=== PATIENT | female | born 1995 | race Caucasian/White ===

== ENCOUNTER 2018-02-03 16:11 | Observation (INO) ==
[2018-02-03] MEDS ORDERED: Sod Chloride 0.9% Inj 1,000 ML IV.SIG SCH (16:30)
[2018-02-03] MEDS ORDERED: Sod Chloride 0.9% Inj 800 ML IV.SIG SCH (16:30)
--- NOTE | 2018-02-03 16:35 | ED ---
HPI General Chief Complaint: Weakness Stated Complaint: Fever/Body Aches/Sore Throat/PEREZ Time Seen by Provider: 02/03/18 16:23 Source: patient Mode of arrival: ambulatory Limitations: no limitations History of Present Illness MD complaint: Reports fever Onset (ago): day(s) (2) Maximum Temperature: 104 F Associated symptoms: Reports chills, myalgias, headache and sore throat Relieving factors: nothing Exacerbating factors: nothing Treatments prior to arrival fever: Reports acetaminophen and antibiotics ( Zithromax prescribed yesterday per PMD) Related Data Home Medications Medication Instructions Recorded Confirmed etonogestrel [Nexplanon] 02/03/18 Allergies Allergy/AdvReac Type Severity Reaction Status Date / Time penicillin G Allergy Severe RASH Verified 02/03/18 16:48 Sulfa (Sulfonamide Allergy Severe RASH Verified 02/03/18 16:48 Antibiotics) Review of Systems ROS: all other systems reviewed are negative Gastrointestinal Comments: frequent RUQ pain which is being evaluated by her doctor. US was neg and labs have been normal. [facility] Medical History Medical History Patient denies medical problems (Acute) Patient denies significant medical history (Acute) Social History Social History Substance History: No History of Abuse Smoking Status: Never smoker How Often Do You Have a Drink Containing Alcohol: 2 to 4 times a month Recent Travel in [facility] within the Last 8 Weeks: No Recent Out of Country Travel within the Last 8 Weeks: No Immunization History Tetanus Immunization: >5 Years Tetanus Immunization Year if Known: 2007 Exam Const General: cooperative, healthy appearing, well developed and other (She does not look like she feels very well. She is mouth breathing. She is also fearful.) Orientation: alert, awake and oriented x3 HENMT Head: normal to inspection, normocephalic and atraumatic Nose: nasal discharge clear Mouth: oral mucosae normal Throat: posterior oropharynx normal Eyes Alignment and Position: alignment normal and position abnormal Conjunctivae: conjunctivae normal Sclera: sclerae normal EOM: EOM intact bilaterally Neck Neck: normal visual inspection, full ROM and supple Chest Chest: normal inspection of the chest Resp Effort & Inspection: normal respiratory effort and able to speak in complete sentences Auscultation: clear to auscultation bilaterally Cardio Rate: tachycardic Rhythm: regular rhythm GI Inspection: normal to inspection Palpation: soft Back/Spine/Pelvis Cervical Spine: cervical ROM normal Thoracic/Lumbar Spine: thoraco-lumbar ROM normal Skin General: no rashes or lesions noted, turgor normal and dry skin Neuro General: alert, awake, oriented x3, moves all extremities and CN's II-XI intact bilaterally Extrem General: normal to inspection and full ROM Psych Appearance: grossly normal Mental Status: mental status grossly normal Speech and Movement: speech and movement normal Mood: congruent mood Affect: normal affect Attitude: cooperative Thought Process: normal Thought Content: normal Judgment: judgment good Course Initial Documented Vital Signs Temperature 99.9 F H 02/03/18 16:12 Pulse Rate 140 H 02/03/18 16:12 Respiratory Rate 18 02/03/18 16:12 Blood Pressure 126/61 02/03/18 16:12 Pulse Oximetry 98 02/03/18 16:12 Last Documented Vital Signs Temperature 99.9 F H 02/03/18 16:12 Pulse Rate 130 H 02/03/18 16:17 Respiratory Rate 22 02/03/18 16:17 Blood Pressure 117/80 02/03/18 16:17 Pulse Oximetry 99 02/03/18 16:17 Medical Decision Making [facility] Narrative Medical decision making narrative: This patient presents with a 2-day history of sore throat, fever and myalgias. She was started on Zithromax yesterday empirically per her primary care physician. She has taken that and is not feeling any better. She has also been taking Tylenol regularly without relief. She does not look like she feels very well. She has a sinus tachycardia at 140. Her temperature was taken orally. I suspect that it is higher than 99.9. Mouth breathing. Septic workup has been initiated. Strep and flu screens are negative. This patient presents with a 2-day history of fever with a T-max of 104. On arrival here, her heart rate was 140. The etiology of her fever has not been determined. She has been treated empirically with cefepime. She reports no history of IV drug abuse so vancomycin has not been ordered. I would like to admit her for observation because of her high fever and associated tachycardia with no obvious etiology. The patient is amenable to this plan. Medical Screen Exam Complete: Yes Emergency Medical Condition: Yes Lab Data Lab results reviewed: Yes I reviewed the patient's lab results. Result diagrams: 02/03/18 16:45 02/03/18 16:45 Lab Results 02/03/18 02/03/18 02/03/18 Range/Units 16:45 16:45 16:45 CBC w Diff Auto diff final WBC 14.9 H (4.0-11.0) th/mm3 RBC 4.58 (4.00-5.30) mil/mm3 Hgb 13.5 (11.6-15.3) gm/dL Hct 41.4 (35.0-46.0) % MCV 90.5 (80.0-100.0) fL MCH 29.4 (27.0-34.0) pg MCHC 32.5 (32.0-36.0) % RDW 13.0 (11.6-17.2) % Plt Count 149 L (150-450) th/mm3 MPV 10.2 (7.0-11.0) fL Neut % (Auto) 82.1 H (16.0-70.0) % Lymph % (Auto) 8.3 L (9.0-44.0) % [place] % (Auto) 9.1 H (0.0-8.0) % Eos % (Auto) 0.3 (0.0-4.0) % Baso % (Auto) 0.2 (0.0-2.0) % Neut # (Auto) 12.3 H (1.8-7.7) th/mm3 Lymph # (Auto) 1.2 (1.0-4.8) th/mm3 [place] # (Auto) 1.4 H (0.0-0.9) th/mm3 Eos # (Auto) 0.0 (0.0-0.4) th/mm3 Baso # (Auto) 0.0 (0.0-0.2) th/mm3 WBC Differential . Differential Comment . Sodium 137 (136-145) meq/L Potassium 3.7 (3.5-5.1) meq/L Chloride 105 (98-107) meq/L Carbon Dioxide 24.8 (21.0-32.0) meq/L Anion Gap 7 (5-15) meq/L BUN 6 L (7-18) mg/dL Creatinine 0.74 (0.50-1.00) mg/dL Estimated GFR Greater than 89 (>89) mL/min Random Glucose 120 H (74-106) mg/dL Lactic Acid 1.5 (0.4-2.0) mmol/L Calcium 8.5 (8.5-10.1) mg/dL Magnesium 2.2 (1.5-2.5) mg/dL Total Bilirubin 0.3 (0.2-1.0) mg/dL AST 8 L (15-37) U/L ALT 17 (10-53) U/L Alkaline Phosphatase 46 (45-117) U/L Total Protein 7.8 (6.4-8.2) g/dL Albumin 3.7 (3.4-5.0) g/dL Urine Color (Yellw/Straw) Urine Clarity (Clear) Urine pH (5.0-8.5) Ur Specific [place] (1.002-1.035) Urine Protein (Neg-Trace) mg/dL Urine Glucose (UA) (Negative) mg/dL Urine Ketones (Negative) mg/dL Urine Occult Blood (Negative) Urine Nitrate (Negative) Urine Bilirubin (Negative) Urine Urobilinogen (Less than 2) mg/dL Ur Leukocyte Esterase (Negative) Urine RBC (0-3) /hpf Urine WBC (0-5) /hpf Ur Squamous Epith Cells (0-5) /hpf Urine Bacteria (None) /hpf Urine Mucus (Occasional) /lpf Micro UA Comment Ur Microscopic Review Urine Culture Comments 02/03/18 Range/Units 17:20 CBC w Diff WBC (4.0-11.0) th/mm3 RBC (4.00-5.30) mil/mm3 Hgb (11.6-15.3) gm/dL Hct (35.0-46.0) % MCV (80.0-100.0) fL MCH (27.0-34.0) pg MCHC (32.0-36.0) % RDW (11.6-17.2) % Plt Count (150-450) th/mm3 MPV (7.0-11.0) fL Neut % (Auto) (16.0-70.0) % Lymph % (Auto) (9.0-44.0) % [place] % (Auto) (0.0-8.0) % Eos % (Auto) (0.0-4.0) % Baso % (Auto) (0.0-2.0) % Neut # (Auto) (1.8-7.7) th/mm3 Lymph # (Auto) (1.0-4.8) th/mm3 [place] # (Auto) (0.0-0.9) th/mm3 Eos # (Auto) (0.0-0.4) th/mm3 Baso # (Auto) (0.0-0.2) th/mm3 WBC Differential Differential Comment Sodium (136-145) meq/L Potassium (3.5-5.1) meq/L Chloride (98-107) meq/L Carbon Dioxide (21.0-32.0) meq/L Anion Gap (5-15) meq/L BUN (7-18) mg/dL Creatinine (0.50-1.00) mg/dL Estimated GFR (>89) mL/min Random Glucose (74-106) mg/dL Lactic Acid (0.4-2.0) mmol/L Calcium (8.5-10.1) mg/dL Magnesium (1.5-2.5) mg/dL Total Bilirubin (0.2-1.0) mg/dL AST (15-37) U/L ALT (10-53) U/L Alkaline Phosphatase (45-117) U/L Total Protein (6.4-8.2) g/dL Albumin (3.4-5.0) g/dL Urine Color Yellow (Yellw/Straw) Urine Clarity Slightly cloudy (Clear) Urine pH 7.0 (5.0-8.5) Ur Specific [place] 1.020 (1.002-1.035) Urine Protein Trace (Neg-Trace) mg/dL Urine Glucose (UA) Negative (Negative) mg/dL Urine Ketones Negative (Negative) mg/dL Urine Occult Blood Large H (Negative) Urine Nitrate Negative (Negative) Urine Bilirubin Negative (Negative) Urine Urobilinogen 1.0 (Less than 2) mg/dL Ur Leukocyte Esterase Negative (Negative) Urine RBC 15-50 H (0-3) /hpf Urine WBC 6-8 H (0-5) /hpf Ur Squamous Epith Cells Greater than 10 H (0-5) /hpf Urine Bacteria Few H (None) /hpf Urine Mucus Rare H (Occasional) /lpf Micro UA Comment Culture not ind Ur Microscopic Review Microscopic reviewed Urine Culture Comments Culture not ind Imaging Data Attestation: I personally reviewed and interpreted this imaging study as follows : Radiologist's impression: Chest X-Ray 02/03/18 16:29 CONCLUSION: No acute intrathoracic disease. Discharge Plan Discharge Disposition Patient Disposition: ED Admit(ED Internal Use Only) Discharge Order Discharge Orders: ED Use Only Admit Order (Routine); Ordered 02/03/18 Ordered By: Maryse Vides Discharge Details Diagnosis: Fever, Tachycardia Physicians Team ED Provider: Maryse Vides Primary Care Provider: Alvin Paul Rxs /Orders / Referrals /Forms Prescriptions: No Action etonogestrel [Nexplanon] 68 mg Implant RF: 0 Status ED Status: Pending Admission
--- NOTE | 2018-02-03 17:04 | XR ---
EXAM DATE: 02/03/2018 5:01 PM EST AGE/SEX: 23 years / Female INDICATIONS: Fever, cough, and shortness of breath. CLINICAL DATA: This is the patient's initial encounter. Patient reports that signs and symptoms have been present for 1 day and indicates a pain score of 4/10. MEDICAL/SURGICAL HISTORY: None. None. COMPARISON: No prior exams available for comparison. FINDINGS: A single AP view of the chest demonstrates the lungs to be symmetrically aerated without evidence of mass, infiltrate or effusion. The cardiomediastinal contours are unremarkable. Osseous structures a re intact. CONCLUSION: No acute intrathoracic disease. Electronically signed by: Shar Cardona MD Board Certified Radiologist 02/03/2018 5:02 PM EST
[2018-02-03 17:12] LABS: Baso % (Auto) 0.2 % (0.0-2.0); Eos % (Auto) 0.3 % (0.0-4.0); Hematocrit 41.4 % (35.0-46.0); Hemoglobin 13.5 gm/dL (11.6-15.3); Lymph # (Auto) 1.2 th/mm3 (1.0-4.8); Lymph % (Auto) 8.3 % (9.0-44.0); Mean Corpuscular HGB Conc 32.5 % (32.0-36.0); Mean Corpuscular Hemoglobin 29.4 pg (27.0-34.0); Mean Corpuscular Volume 90.5 fL (80.0-100.0); Mean Platelet Volume 10.2 fL (7.0-11.0); Mono # (Auto) 1.4 th/mm3 (0.0-0.9); Mono % (Auto) 9.1 % (0.0-8.0); Neut # (Auto) 12.3 th/mm3 (1.8-7.7); Neut % (Auto) 82.1 % (16.0-70.0); Platelet Count 149 th/mm3 (150-450); Red Blood Count 4.58 mil/mm3 (4.00-5.30); White Blood Count 14.9 th/mm3 (4.0-11.0)
[2018-02-03 17:18] LABS: Chloride 105 meq/L (98-107); Potassium 3.7 meq/L (3.5-5.1); Sodium 137 meq/L (136-145)
[2018-02-03 17:21] LABS: Albumin 3.7 g/dL (3.4-5.0); Anion Gap 7 meq/L (5-15); Blood Urea Nitrogen 6 mg/dL (7-18); Calcium 8.5 mg/dL (8.5-10.1); Carbon Dioxide 24.8 meq/L (21.0-32.0); Glucose,Random 120 mg/dL (74-106); Magnesium 2.2 mg/dL (1.5-2.5)
[2018-02-03 17:24] LABS: Alanine Aminotransferase 17 U/L (10-53); Aspartate Aminotransferase 8 U/L (15-37); Glomerular Filtration Rate Greater Than 89 mL/min (>89)
[2018-02-03 17:24] LABS: Bilirubin,Urine Negative (Negative); Clarity,Urine Slightly Cloudy (Clear); Color,Urine Yellow (Yellw/Straw); Glucose,Urine (UA) Negative (Negative); Leukocyte Esterase,Urine Negative (Negative); Nitrite,Urine Negative (Negative)
[2018-02-03 17:26] LABS: Total Protein 7.8 g/dL (6.4-8.2)
[2018-02-03 17:30] LABS: Bacteria,Urine Few /hpf; Mucus,Urine Rare /lpf (Occasional); Squamous Epithelial Cell,Urine Greater than 10 /hpf (0-5)
[2018-02-03 17:40] LABS: Alkaline Phosphatase 46 U/L (45-117)
[2018-02-03 18:41] LABS: Cannabinoid Screen,Urine Neg (Neg); Cocaine Screen,Urine Neg (Neg)
[2018-02-03 18:49] LABS: Amphetamine Screen,Urine Neg (Neg)
[2018-02-03 18:50] LABS: Barbiturate Screen,Urine Neg (Neg)
[2018-02-03 18:51] LABS: Thyroid Stimulating Hormone 1.73 uIU/mL (0.358-3.740)
[2018-02-03 18:55] LABS: Opiate Screen,Urine Neg (Neg)
[2018-02-03] MEDS: Acetaminophen 325 MG Tablet PO PRN (19:28)
[2018-02-03] MEDS: Sod Chloride 0.9% Inj 1,000 ML IV.CONT SCH ×2 (20:08→20:56)
[2018-02-03 22:27] LABS: Mono Screen Neg (Neg)
[2018-02-04] MEDS: Acetaminophen 325 MG Tablet PO PRN ×2 (00:07→10:54)
[2018-02-04] MEDS ORDERED: Ibuprofen 600 MG Tablet PO PRN (00:16)
[2018-02-04] MEDS: Benzocaine/Menthol 15 MG/3.6 MG SF Lozenge BUCCAL PRN ×2 (00:51→05:50)
[2018-02-04] MEDS: Sod Chloride 0.9% Inj 1,000 ML IV.CONT SCH (05:51)
[2018-02-04 07:47] LABS: Baso % (Auto) 0.1 % (0.0-2.0); Eos # (Auto) 0.1 th/mm3 (0.0-0.4); Eos % (Auto) 0.8 % (0.0-4.0); Hematocrit 33.4 % (35.0-46.0); Hemoglobin 11.1 gm/dL (11.6-15.3); Lymph # (Auto) 1.5 th/mm3 (1.0-4.8); Lymph % (Auto) 13.4 % (9.0-44.0); Mean Corpuscular HGB Conc 33.2 % (32.0-36.0); Mean Corpuscular Hemoglobin 30.3 pg (27.0-34.0); Mean Corpuscular Volume 91.2 fL (80.0-100.0); Mean Platelet Volume 10.7 fL (7.0-11.0); Mono % (Auto) 9.2 % (0.0-8.0); Neut # (Auto) 8.6 th/mm3 (1.8-7.7); Neut % (Auto) 76.5 % (16.0-70.0); Platelet Count 134 th/mm3 (150-450); Red Blood Count 3.66 mil/mm3 (4.00-5.30); White Blood Count 11.2 th/mm3 (4.0-11.0)
[2018-02-04 08:10] LABS: Chloride 111 meq/L (98-107); Potassium 3.7 meq/L (3.5-5.1); Sodium 142 meq/L (136-145)
[2018-02-04 08:15] LABS: Calcium 7.7 mg/dL (8.5-10.1)
--- NOTE | 2018-02-04 08:31 | P.HP ---
History of Present Illness Primary Care Physician: Alvin Paul DO Chief Complaint: Fever, malaise, body aches, congestion History of Present Illness: This is a very pleasant 23-year-old female patient with no known medical history presented to the ED with a 2-day complaint of high fevers of 104 at home , chills, body aches, headache, sore throat and sinus congestion. States that around Tuesday night she developed chills and a high fever, she does admit to associated nausea without vomiting or diarrhea. She states she has been taking Tylenol and ibuprofen intermittently which has helped the muscle aches. She presented to her PCP yesterday for which she was prescribed azithromycin, she did take 500 mg total. Over the course the night she felt she was getting worse with continued high fever and feelings of palpitations which prompted her presentation to the ED. Patient denies any history of any medical problems, denies any surgical history. Does not smoke occasional alcohol use. Patient denies any new sexual partners, send a monogamous relationship. At the time of assessment patient states she feels mildly improved, still feels achy and states that her sinuses feel congested and is unable to blow her nose. Sore throat has improved. Since presentation T-max 99. CBC showing 14.9 white blood cell initially, improved overnight. - Diagnosis (1) Fever (2) Tachycardia Review of Systems All other systems reviewed negative except as stated in HPI PMFSH - History History Provided By: Patient - Medical / Surgical Hx Neg / Unobtainable Surgical History: No Previous Surgery - Medical History Medical History: Medical History (Last Reviewed 02/04/18 @ 09:36 by Clara Knowles) Patient denies medical problems Patient denies significant medical history - Family History Family History: Family History (Last Updated 02/04/18 @ 09:39 by Clara Knowles) Other Family history in first degree relatives is unremarkable Family history non-contributory - Social History I have reviewed the patient's Social History: Yes - Tobacco History Second Hand Smoke Exposure: Yes Smoking Status: Never smoker - Alcohol History How Often Do You Have a Drink Containing Alcohol: 2 to 4 times a month - Substance Use History Substance History: No History of Abuse - Travel History Recent Travel in the [facility] Within the Last 8 Weeks: No Recent Travel Out of the Country Within the Last 8 Weeks: No - Immunization History Tetanus Immunization: >5 Years Tetanus Immunization Year if Known: 2007 Medications and Allergies Active Medications: Active Medications Acetaminophen (Tylenol) 650 mg PO Q4H PRN PRN Reason: Temp > 100.4 Last Admin: 02/04/18 00:07 Dose: 650 mg Benzocaine/Menthol (Cepacol Max Strength) 1 lozenge BUCCAL Q2H PRN PRN Reason: SORE THROAT Last Admin: 02/04/18 05:50 Dose: 1 lozenge Diphenhydramine HCl (Benadryl) 25 mg PO HS PRN PRN Reason: INSOMNIA Last Admin: 02/04/18 00:50 Dose: 25 mg Sodium Chloride (Ns Inj) 1,000 mls @ 0 mls/hr IV.SIG .Q0M LUBNA Last Infusion: 02/03/18 18:05 Dose: Infused Sodium Chloride (Ns Inj) 800 mls @ 0 mls/hr IV.SIG .Q0M LUBNA Sodium Chloride (Ns Inj) 1,000 mls @ 100 mls/hr IV.CONT .Q10H LUBNA Last Admin: 02/04/18 05:51 Dose: 100 mls/hr Ibuprofen (Motrin) 600 mg PO Q8H PRN PRN Reason: PAIN 1-10 OR TEMP > 100.4 F Last Admin: 02/04/18 05:50 Dose: 600 mg Sodium Chloride (Ns Flush) 2 ml IV.FLUSH BID LUBNA Last Admin: 02/03/18 20:59 Dose: 2 ml Sodium Chloride (Ns Flush) 2 ml IV.FLUSH PRN PRN PRN Reason: FLUSH AFTER USING IV ACCESS Allergies Allergy/AdvReac Type Severity Reaction Status Date / Time penicillin G Allergy Severe RASH Verified 02/03/18 16:48 Sulfa (Sulfonamide Allergy Severe RASH Verified 02/03/18 16:48 Antibiotics) Home Medications Medication Instructions Recorded Confirmed Type etonogestrel [Nexplanon] 02/03/18 History Exam Vital signs: Vital Signs 02/03/18 16:12 02/03/18 16:17 02/03/18 18:00 Temperature 99.9 F H Pulse Rate 140 H 130 H 106 H Respiratory Rate 18 22 20 Blood Pressure 126/61 117/80 114/68 Pulse Oximetry 98 99 98 02/03/18 20:00 02/03/18 21:35 02/04/18 00:00 Temperature 97.4 F L 98.4 F Pulse Rate 113 H 103 H 104 H Respiratory Rate 17 18 Blood Pressure 100/58 L 106/62 Pulse Oximetry 98 100 02/04/18 04:00 Temperature 98.0 F Pulse Rate 94 H Respiratory Rate 17 Blood Pressure 103/68 Pulse Oximetry 99 Intake & Output 02/03/18 02/04/18 02/04/18 18:59 06:59 18:59 Intake Total 1100 / 1100 2380 / 2380 Balance 1100 / 1100 2380 / 2380 Weight 55 kg 57.4 kg Intake: IV 1100 / 1100 1900 / 1900 NS Inj 1,000 ML @ 100 mls/hr IV 1900 / 1900 .CONT .Q10H LUBNA Rx#:[id number] Maxipime Inj 2,000 MG In NS Inj 100 / 100 100 ML @ 200 mls/hr IV.SIG STAT STA Rx#:[id number] NS Inj 1,000 ML @ Wide Open IV. 1000 / 1000 SIG .Q0M LUBNA Rx#:[id number] Oral 480 / 480 Other: # Voids 2 Weight On Admission 56.961 kg Narrative: GENERAL: Well-developed, well-nourished patient in [facility]. SKIN: Warm and dry. No rash. HEAD: Normocephalic. Atraumatic. EYES: Pupils equal and round. No scleral icterus. No injection or drainage. ENT: No nasal bleeding or discharge. Mucous membranes pink and moist. Erythema to throat, no exudate. NECK: Supple. Trachea midline. CARDIOVASCULAR: Tachycardic. S1, S2 noted. No murmur appreciated. RESPIRATORY: No accessory muscle use. Clear to auscultation. Breath sounds equal bilaterally. GASTROINTESTINAL: Abdomen soft, non-tender, nondistended. Normoactive bowel sounds x4. MUSCULOSKELETAL: No obvious deformities. Extremities without clubbing, cyanosis , or edema. NEUROLOGICAL: Awake and alert. No obvious cranial nerve deficits. Motor grossly within normal limits. 5/5 muscle strength in bilateral upper and lower extremities. Normal speech. PSYCHIATRIC: Appropriate mood and affect; insight and judgment normal. Results - Labs CBC & Chem 7: 02/04/18 07:15 02/04/18 07:15 Labs: Laboratory Results - last 24 hr 02/03/18 02/03/18 02/03/18 16:45 16:45 16:45 CBC w Diff Auto diff final WBC 14.9 H RBC 4.58 Hgb 13.5 Hct 41.4 MCV 90.5 MCH 29.4 MCHC 32.5 RDW 13.0 Plt Count 149 L MPV 10.2 Neut % (Auto) 82.1 H Lymph % (Auto) 8.3 L [place] % (Auto) 9.1 H Eos % (Auto) 0.3 Baso % (Auto) 0.2 Neut # (Auto) 12.3 H Lymph # (Auto) 1.2 [place] # (Auto) 1.4 H Eos # (Auto) 0.0 Baso # (Auto) 0.0 WBC Differential . Differential Comment . Sodium 137 Potassium 3.7 Chloride 105 Carbon Dioxide 24.8 Anion Gap 7 BUN 6 L Creatinine 0.74 Estimated GFR Greater than 89 Random Glucose 120 H Lactic Acid 1.5 Calcium 8.5 Magnesium 2.2 Total Bilirubin 0.3 AST 8 L ALT 17 Alkaline Phosphatase 46 Total Creatine Kinase Troponin I Total Protein 7.8 Albumin 3.7 TSH Urine Color Urine Clarity Urine pH Ur Specific [place] Urine Protein Urine Glucose (UA) Urine Ketones Urine Occult Blood Urine Nitrate Urine Bilirubin Urine Urobilinogen Ur Leukocyte Esterase Urine RBC Urine WBC Ur Squamous Epith Cells Urine Bacteria Urine Mucus Micro UA Comment Ur Microscopic Review Urine Culture Comments Urine Opiates Screen Ur Barbiturates Screen Ur Amphetamines Screen U Benzodiazepines Scrn Urine Cocaine Screen U Cannabinoids Screen Monoscreen 02/03/18 02/03/18 02/03/18 16:45 16:45 17:20 CBC w Diff WBC RBC Hgb Hct MCV MCH MCHC RDW Plt Count MPV Neut % (Auto) Lymph % (Auto) [place] % (Auto) Eos % (Auto) Baso % (Auto) Neut # (Auto) Lymph # (Auto) [place] # (Auto) Eos # (Auto) Baso # (Auto) WBC Differential Differential Comment Sodium Potassium Chloride Carbon Dioxide Anion Gap BUN Creatinine Estimated GFR Random Glucose Lactic Acid Calcium Magnesium Total Bilirubin AST ALT Alkaline Phosphatase Total Creatine Kinase 81 Troponin I Less than 0.02 L Total Protein Albumin TSH 1.730 Urine Color Yellow Urine Clarity Slightly cloudy Urine pH 7.0 Ur Specific [place] 1.020 Urine Protein Trace Urine Glucose (UA) Negative Urine Ketones Negative Urine Occult Blood Large H Urine Nitrate Negative Urine Bilirubin Negative Urine Urobilinogen 1.0 Ur Leukocyte Esterase Negative Urine RBC 15-50 H Urine WBC 6-8 H Ur Squamous Epith Cells Greater than 10 H Urine Bacteria Few H Urine Mucus Rare H Micro UA Comment Culture not ind Ur Microscopic Review Microscopic reviewed Urine Culture Comments Culture not ind Urine Opiates Screen Ur Barbiturates Screen Ur Amphetamines Screen U Benzodiazepines Scrn Urine Cocaine Screen U Cannabinoids Screen Monoscreen 02/03/18 02/03/18 02/04/18 17:20 20:45 07:15 CBC w Diff Auto diff final WBC 11.2 H RBC 3.66 L Hgb 11.1 L D Hct 33.4 L MCV 91.2 MCH 30.3 MCHC 33.2 RDW 13.0 Plt Count 134 L MPV 10.7 Neut % (Auto) 76.5 H Lymph % (Auto) 13.4 [place] % (Auto) 9.2 H Eos % (Auto) 0.8 Baso % (Auto) 0.1 Neut # (Auto) 8.6 H Lymph # (Auto) 1.5 [place] # (Auto) 1.0 H Eos # (Auto) 0.1 Baso # (Auto) 0.0 WBC Differential . Differential Comment . Sodium Potassium Chloride Carbon Dioxide Anion Gap BUN Creatinine Estimated GFR Random Glucose Lactic Acid Calcium Magnesium Total Bilirubin AST ALT Alkaline Phosphatase Total Creatine Kinase Troponin I Total Protein Albumin TSH Urine Color Urine Clarity Urine pH Ur Specific [place] Urine Protein Urine Glucose (UA) Urine Ketones Urine Occult Blood Urine Nitrate Urine Bilirubin Urine Urobilinogen Ur Leukocyte Esterase Urine RBC Urine WBC Ur Squamous Epith Cells Urine Bacteria Urine Mucus Micro UA Comment Ur Microscopic Review Urine Culture Comments Urine Opiates Screen Neg Ur Barbiturates Screen Neg Ur Amphetamines Screen Neg U Benzodiazepines Scrn Neg Urine Cocaine Screen Neg U Cannabinoids Screen Neg Monoscreen Neg 02/04/18 07:15 CBC w Diff WBC RBC Hgb Hct MCV MCH MCHC RDW Plt Count MPV Neut % (Auto) Lymph % (Auto) [place] % (Auto) Eos % (Auto) Baso % (Auto) Neut # (Auto) Lymph # (Auto) [place] # (Auto) Eos # (Auto) Baso # (Auto) WBC Differential Differential Comment Sodium 142 Potassium 3.7 Chloride 111 H Carbon Dioxide Anion Gap BUN Creatinine Estimated GFR Random Glucose Lactic Acid Calcium 7.7 L D Magnesium Total Bilirubin AST ALT Alkaline Phosphatase Total Creatine Kinase Troponin I Total Protein Albumin TSH Urine Color Urine Clarity Urine pH Ur Specific [place] Urine Protein Urine Glucose (UA) Urine Ketones Urine Occult Blood Urine Nitrate Urine Bilirubin Urine Urobilinogen Ur Leukocyte Esterase Urine RBC Urine WBC Ur Squamous Epith Cells Urine Bacteria Urine Mucus Micro UA Comment Ur Microscopic Review Urine Culture Comments Urine Opiates Screen Ur Barbiturates Screen Ur Amphetamines Screen U Benzodiazepines Scrn Urine Cocaine Screen U Cannabinoids Screen Monoscreen - Imaging Impressions Chest X-Ray 02/03/18 16:29 CONCLUSION: No acute intrathoracic disease. Caprini VTE Risk Assessment Caprini VTE Risk Assessment: No/Low Risk (score <= 1) Caprini Risk Assessment Model: Point Value = 1 Point Value = 2 Point Value = 3 Point Value = 5 Age 41-60 Minor surgery BMI > 25 kg/m2 Swollen legs Varicose veins or History of unexplained or recurrent spontaneous Oral contraceptives or hormone replacement Sepsis (< 1 month) Serious lung disease, including pneumonia (< 1 month) Abnormal pulmonary function Acute myocardial infarction Congestive heart failure (< 1 month) History of inflammatory bowel disease Medical patient at bed rest Age 61-74 Arthroscopic surgery Major open surgery (> 45 min) Laparoscopic surgery (> 45 min) Malignancy Confined to bed (> 72 hours) Immobilizing plaster cast Central venous access Age >= 75 History of VTE Family history of VTE Factor V Leiden Prothrombin [id number] Lupus anticoagulant Anticardiolipin antibodies Elevated serum homocysteine Heparin-induced thrombocytopenia Other congenital or acquired thrombophilia Stroke (< 1 month) Elective arthroplasty Hip, pelvis, or leg fracture Acute spinal cord injury (< 1 month) Prophylaxis Regimen: Total Risk Factor Score Risk Level Prophylaxis Regimen 0-1 Low Early ambulation 2 Moderate Order ONE of the following: *Sequential Compression Device (SCD) *Heparin 5000 units SQ BID 3-4 Higher Order ONE of the following medications: *Heparin 5000 units SQ TID *Enoxaparin/Lovenox 40 mg SQ daily (WT < 150 kg, CrCl > 30 mL/min) *Enoxaparin/Lovenox 30 mg SQ daily (WT < 150 kg, CrCl > 10-29 mL/min) *Enoxaparin/Lovenox 30 mg SQ BID (WT < 150 kg, CrCl > 30 mL/min) AND/OR *Sequential Compression Device (SCD) 5 or more Highest Order ONE of the following medications: *Heparin 5000 units SQ TID (Preferred with Epidurals) *Enoxaparin/Lovenox 40 mg SQ daily (WT < 150 kg, CrCl > 30 mL/min) *Enoxaparin/Lovenox 30 mg SQ daily (WT < 150 kg, CrCl > 10-29 mL/min) *Enoxaparin/Lovenox 30 mg SQ BID (WT < 150 kg, CrCl > 30 mL/min) AND *Sequential Compression Device (SCD) Assessment and Plan - Assessment (1) Fever Code(s): R50.9 - Fever, unspecified Status: Acute (2) Tachycardia Code(s): R00.0 - Tachycardia, unspecified Status: Acute - Plan This is a 23 year old female patient with: Acute sinusitis, suspect viral Fever, resolved. Leukocytosis, improving -Patient presented with a 2 day complaint of generalized malaise, fever of 104, cough, congestion and sore throat. -Was given a dose of Azithromycin yesterday from PCP. -[place] test neg. Influenza negative. UA negative. Tox negative. CXR negative for any acute findings. -Improved overnight, no continued fevers. -Continued on IVF to ensure hydration. Encourage PO intake. Tolerating PO well. -Supportive care with Ibuprofen/Acetaminophen, nasal spray, Mucinex and cough medication. -This appears to be viral in nature, reassessed patient and she is feeling much improved and eager to go home. -Patient will be given Doxycycline if she does not see improvement in a couple days, will have her follow up with her PCP. Dc home. Follow up PCP. RX as written. Diet as tolerated. Activity as tolerated. (1) Fever Qualifiers: Fever type: unspecified Qualified Code(s): R50.9 - Fever, unspecified
[2018-02-04 08:34] LABS: Alanine Aminotransferase 32 U/L (10-53); Alkaline Phosphatase 50 U/L (45-117); Anion Gap 8 meq/L (5-15); Aspartate Aminotransferase 35 U/L (15-37); Blood Urea Nitrogen 3 mg/dL (7-18); Carbon Dioxide 23.5 meq/L (21.0-32.0); Glomerular Filtration Rate Greater Than 89 mL/min (>89); Glucose,Random 95 mg/dL (74-106); Total Protein 6.4 g/dL (6.4-8.2)
[2018-02-04 09:29] VITALS: RESP 20; TEMP 97.4
[2018-02-04] MEDS ORDERED: guaiFENesin 600 MG ER Tablet PO SCH (10:00)
[2018-02-04 13:13] VITALS: BP 110/77; O2SAT 96
[2018-02-04 14:18] VITALS: PULSE 97
== END 2018-02-04 17:34 | disposition home or self-care (01) ==
LOC: PHED 16:11 → PHEDA 16:11 → PH3 19:57
PROVIDERS: ADMIT Hospitalist; ATTEND Hospitalist
DX: R68.83 Chills (without fever); R09.81 Nasal congestion; R10.11 Right upper quadrant pain; R51 Headache; R00.0 Tachycardia, unspecified; R50.9 Fever, unspecified; M79.10 Myalgia, unspecified site; R53.1 Weakness; J01.90 Acute sinusitis, unspecified